=== PATIENT | female | born 1995 | race African-American/Black ===

== ENCOUNTER 2023-08-07 21:57 | Emergency (ER) | payer SELFPAY ==
[~2023-08-07] VITALS: Ht 152.4 cm; Wt 61.7 kg
[2023-08-07 22:04] VITALS: BP_SYST 120; PULSE 75; RESP 17; TEMP 97.6; O2SAT 98
== END 2023-08-07 22:30 | disposition left against medical advice (07) ==
LOC: SED 21:57
DX: R19.7 Diarrhea, unspecified (principal); R11.10 Vomiting, unspecified; R10.9 Unspecified abdominal pain; Z53.21 Procedure and treatment not carried out due to patient leaving prior to being seen by health care provider